=== PATIENT | female | born 1935 | race Caucasian/White ===

== ENCOUNTER → 2016-02-18 | Outpatient (CLI) | payer MEDICARE, OTHER | LOC: GMAJ 17:04 | PROVIDERS: ATTEND Family Medicine | DX: E03.9 Hypothyroidism, unspecified (principal) ==

== ENCOUNTER 2016-02-22 07:26 | Emergency (ER) | payer MEDICARE, OTHER ==
[2016-02-22 07:38] VITALS: TEMP 98.1
--- NOTE | 2016-02-22 07:39 | ED.PDOC ---
History of Present Illness - General Chief Complaint: GI Problem Stated Complaint: vomiting,diarrhea Time Seen by Provider: 02/22/16 07:30 Information Source: patient, RN notes reviewed, EMS Exam Limitations: no limitations - History of Present Illness Initial Comments: Patient reports vomiting for 3 days with diarrhea that started last night. She has been feeling weak and reports she can't keep anything on her stomach. She has generalized abdominal pain that comes with the vomiting. Abdominal Pain Onset Location: generalized abdomen Pain Radiation: no radiation Quality: mild, cramping Timing/Duration: days - 3 Improving Factors: nothing Worsening Factors: eating Associated Symptoms: diarrhea, fatigue, nausea/vomiting Review of Systems - Review of Systems Constitutional: States: malaise, weakness. Denies: chills, diaphoresis, fever EENTM: States: no symptoms reported Respiratory: States: no symptoms reported Cardiology: States: chest pain. Denies: edema, palpitations, syncope Gastrointestinal/Abdominal: States: see HPI, abdominal pain, diarrhea, nausea, vomiting. Denies: constipation Genitourinary: States: no symptoms reported Musculoskeletal: States: no symptoms reported Skin: States: no symptoms reported Neurological: States: weakness. Denies: headache Endocrine: States: no symptoms reported Hematologic/Lymphatic: States: no symptoms reported Past Medical History (General) - Patient Medical History Hx Seizures: No Hx Stroke: No Hx Dementia: No Hx Asthma: Yes Hx of COPD: Yes Hx Cardiac Disorders: Yes - CHF Hx Congestive Heart Failure: Yes Hx Pacemaker: Yes Hx Hypertension: Yes Hx Thyroid Disease: Yes Hx Diabetes: No Hx Gastroesophageal Reflux: Yes Hx Renal Disease: Yes Hx Cancer: Yes Hx of HIV: No Hx Hepatitis C: No Hx MRSA: No - Vaccination History Hx Tetanus, Diphtheria Vaccination: Yes Hx Influenza Vaccination: Yes Hx Pneumococcal Vaccination: No - Social History Hx Tobacco Use: No Hx Chewing Tobacco Use: No Hx Alcohol Use: No Hx Substance Use: No Hx Substance Use Treatment: No Hx Depression: Yes Hx Physical Abuse: No Hx Emotional Abuse: No Hx Suspected Abuse: No - Female History Patient : No Family Medical History - Family History Father Living Status: Age at (years of age): 70 Cause of : [place] Sister Living Status: Cause of : colon cancer Hx Family Cancer: Yes Mother Name: Dorys Age (years): 90 Living Status: Cause of : heart disease Hx Family Asthma: No Hx Family Congestive Heart Failure: No Hx Family Hypertension: No Hx Family Stroke: No Hx Cardiac Disease: Yes Hx Family Diabetes: No Hx Family Cancer: No Physical Exam - Physical Exam General Appearance: Alert, Comfortable, Frail, No apparent distress Neck: non-tender, full range of motion, supple, normal inspection Respiratory: chest non-tender, lungs clear, normal breath sounds, no respiratory distress, no accessory muscle use Cardiovascular/Chest: regular rate, rhythm, no edema, no gallop, no JVD, no murmur Gastrointestinal/Abdominal: normal bowel sounds, soft, other - Mild diffuse tenderness that is worse in her lower abdomen Extremity: normal range of motion, non-tender Neurologic: no motor/sensory deficits, alert, normal mood/affect, oriented x 3 Skin Exam: normal color, warm/dry Lymphatic: no adenopathy Progress - Progress Progress: 02/22/16 10:07 Patient reporting substernal chest pain. Aching in nature and radiating to her L shoulder. + SOB but no nausea or diaphoresis. 02/22/16 10:08 - Results/Orders Results/Orders: Laboratory Tests 02/22/16 07:58 WBC 19.5 H RBC 4.35 Hgb 13.3 Hct 41.1 MCV 94.5 MCH 30.6 MCHC 32.4 L RDW 15.4 H Plt Count 322 MPV 7.6 Absolute Neuts (auto) 17.50 H Absolute Lymphs (auto) 0.90 L Absolute Monos (auto) 1.10 H Absolute Eos (auto) 0.00 Absolute Basos (auto) 0.10 Neutrophils % 89.7 H Lymphocytes % 4.5 L Monocytes % 5.5 Eosinophils % 0.0 L Basophils % 0.3 Sodium 135 Potassium 3.7 Chloride 98 L Carbon Dioxide 24 Anion Gap 16.7 BUN 31 H Creatinine 1.22 BUN/Creatinine Ratio 25.4 H Random Glucose 134 H Serum Osmolality 278.6 Calcium 9.7 Total Bilirubin 1.5 H AST 38 ALT 12 Alkaline Phosphatase 74 Serum Total Protein 7.7 Albumin 4.4 Globulin 3.3 Albumin/Globulin Ratio 1.3 Patient is feeling better. Will give ice chips and see if she can keep them down. Patient tolerated ice chips without difficulty. Awaiting urine sample. Cardiac labs and D-Dimer are within normal limits UA shows Large Leukocytes, otherwise normal. Will send for culture. - EKG/XRAY/CT EKG: Sinus, no ST T wave changes, Unchanged from - 01/08/15 Comments: Demand pacemaker, occ PVC's Departure - Departure Clinical Impression: Gastroenteritis, UTI (urinary tract infection), Dehydration Time of Disposition: 12:20 Disposition: Discharge to Home or Self Care Condition: Good Departure Forms: ED Discharge - Pt. Copy, Patient Portal Self Enrollment Instructions: DI for Viral Gastroenteritis -- Adult, DI for Dehydration -- Adult, Urinary Tract Infection Diet: resume usual diet Activity: increase activity as tolerated Referrals: Andre Patel MD [Primary Care Provider] - 1-2 Days Prescriptions: Ondansetron [Zofran Odt] 4 mg PO Q4HR PRN #20 tab PRN Reason: Nausea/Vomiting Nitrofurantoin Monohydrate Mac [Macrobid] 100 mg PO BID #20 cap Home Medications: Ambulatory Orders Furosemide 40 mg PO DAILY 07/27/12 Levothyroxine Sodium [Synthroid] 0.05 mg PO DAILY@0700 07/27/12 Olanzapine [Zyprexa] 10 mg PO BEDTIME 07/27/12 Nitroglycerin [Nitroglycerin Transdermal] 0.2 mg TD DAILY 12/08/13 Atenolol [Tenormin] 50 mg PO BID 02/27/15 Metoclopramide HCl [Reglan] 5 mg PO AC 02/27/15 Cefdinir [Omnicef] 300 mg PO BID #8 cap 03/02/15 Potassium Chloride [K-Tab] 10 meq PO QAM #30 tab 03/02/15 Nitrofurantoin Monohydrate Mac [Macrobid] 100 mg PO BID #20 cap 02/22/16 Ondansetron [Zofran Odt] 4 mg PO Q4HR PRN #20 tab 02/22/16
[2016-02-22] MEDS ORDERED: ONDANSETRON INJ 4 MG/2 ML VIAL IV ONE ×2 (07:41→12:06)
[2016-02-22] MEDS ORDERED: SODIUM CHLORIDE 0.9% 1000ML 1,000 ML IVS ONE (07:41)
[2016-02-22] MEDS ORDERED: SODIUM CHLORIDE 0.9% 500ML 500 ML IVS ONE (09:49)
[2016-02-22] MEDS ORDERED: NITROFURANTOIN MONOHYDRATE MAC 100 MG CAP PO ONE (12:06)
[2016-02-22 12:36] VITALS: BP 119/44; O2SAT 100
== END 2016-02-22 12:36 | disposition home or self-care (01) ==
LOC: ER 07:26
DX: K52.9 Noninfective gastroenteritis and colitis, unspecified (principal); N39.0 Urinary tract infection, site not specified; E86.0 Dehydration; I11.0 Hypertensive heart disease with heart failure; I50.9 Heart failure, unspecified; J44.9 Chronic obstructive pulmonary disease, unspecified; E07.9 Disorder of thyroid, unspecified; K21.9 Gastro-esophageal reflux disease without esophagitis; N28.9 Disorder of kidney and ureter, unspecified; Z95.0 Presence of cardiac pacemaker; F32.9 Major depressive disorder, single episode, unspecified; Z82.49 Family history of ischemic heart disease and other diseases of the circulatory system; Z80.0 Family history of malignant neoplasm of digestive organs; Z79.899 Other long term (current) drug therapy
CPT/HCPCS: 36415; 80053; 81001; 82550; 82553; 84484; 85025; 85379; 87086; 93005; J2405; J7030; J7040

== ENCOUNTER → 2016-06-22 | Outpatient (CLI) | payer MEDICARE, OTHER | END | disposition home or self-care (01) | LOC: GMAJ 11:39 | PROVIDERS: ATTEND Family Medicine | DX: I50.9 Heart failure, unspecified (principal); E03.9 Hypothyroidism, unspecified ==

== ENCOUNTER 2016-10-06 14:57 | Emergency (ER) | payer MEDICARE, OTHER ==
[2016-10-06 15:26] VITALS: BP 168/81; TEMP 97.3; O2SAT 99
[2016-10-06] MEDS ORDERED: TETANUS,DIPHTHERIA,PERTUSSIS 1 EA SYG IM ONE (15:55)
--- NOTE | 2016-10-06 16:18 | RAD ---
EXAM DESCRIPTION: Fingers,Left CLINICAL HISTORY: 81 years, Female, TRAUMA COMPARISON: FINDINGS: The 2nd metacarpophalangeal joint shows ventral medial subluxation without definite fracture. There is a probable similar ventral medial subluxation at the 3rd metacarpal phalangeal joint. The 3rd digit however is suboptimally visualized on this study. The 1st metacarpal phalangeal joint shows narrowing, sclerosis and suggestion of slight ulnar subluxation, presumably chronic. Some mild degenerative change of the 1st carpometacarpal joint. IMPRESSION: Apparent ventral medial subluxation at the 2nd and 3rd metacarpal phalangeal joints without visualized fracture. Chronic arthritic type changes in the 1st digit also noted Electronically signed by: Fco Mata MD 10/06/2016 4:17 PM CDT
[2016-10-06] MEDS ORDERED: ACETAMINOPHEN 500 MG TAB PO ONE (16:58)
[2016-10-06] MEDS ORDERED: NEOMYCIN-BACITRACIN-POLYMYXIN 0.9 GM UD TOP ONE (17:15)
--- NOTE | 2016-10-06 17:19 | ED.PDOC ---
History of Present Illness - General Chief Complaint: Trauma Stated Complaint: finger injury Time Seen by Provider: 10/06/16 15:54 Source: patient Exam Limitations: no limitations - History of Present Illness Initial Comments: PT STATES THAT SHE SMASHED HER FINGER IN A CAR DOOR JUST INFORMATION LEAD. Severity: mild Improving Factors: immobilization Worsening Factors: movement Allergies/Adverse Reactions: Allergies Ciprofloxacin [From Cipro] Allergy (Unknown, Verified 10/06/16 15:27) Codeine Allergy (Unknown, Verified 10/06/16 15:27) Morphine Allergy (Unknown, Verified 10/06/16 15:27) Home Medications: Ambulatory Orders Furosemide 40 mg PO DAILY 07/27/12 Levothyroxine Sodium [Synthroid] 0.05 mg PO DAILY@0700 07/27/12 Olanzapine [Zyprexa] 10 mg PO BEDTIME 07/27/12 Nitroglycerin [Nitroglycerin Transdermal] 0.2 mg TD DAILY 12/08/13 Atenolol [Tenormin] 50 mg PO BID 02/27/15 Metoclopramide Tab [Reglan Tab] 5 mg PO AC 02/27/15 Cefdinir [Omnicef] 300 mg PO BID #8 cap 03/02/15 Potassium Chloride [K-Tab] 10 meq PO QAM #30 tab 03/02/15 Nitrofurantoin Monohydrate Mac [Macrobid] 100 mg PO BID #20 cap 02/22/16 Ondansetron [Zofran Odt] 4 mg PO Q4HR PRN #20 tab 02/22/16 Review of Systems - Review of Systems Constitutional: Denies: chills, fever EENTM: Denies: blurred vision, ear pain Musculoskeletal: Denies: back pain, joint pain Skin: Denies: change in color, lesions Past Medical History (General) - Patient Medical History Hx Seizures: No Hx Stroke: No Hx Dementia: No Hx Asthma: Yes Hx of COPD: Yes Hx Cardiac Disorders: Yes - CHF Hx Congestive Heart Failure: Yes Hx Pacemaker: Yes Hx Hypertension: Yes Hx Thyroid Disease: Yes Hx Diabetes: No Hx Gastroesophageal Reflux: Yes Hx Renal Disease: Yes Hx Cancer: Yes Hx of HIV: No Hx Hepatitis C: No Hx MRSA: No Surgical History: Hysterectomy - Vaccination History Hx Tetanus, Diphtheria Vaccination: No Hx Influenza Vaccination: Yes Hx Pneumococcal Vaccination: No - Social History Hx Tobacco Use: No Hx Chewing Tobacco Use: No Hx Alcohol Use: No Hx Substance Use: No Hx Substance Use Treatment: No Hx Depression: Yes Hx Physical Abuse: No Hx Emotional Abuse: No Hx Suspected Abuse: No - Activities of Daily Living Hospice Agency (if applicable):: None - Female History Patient is a Female of Child Bearing Age (10 -59 yrs old): No Patient : No Family Medical History - Family History Father Living Status: Age at (years of age): 70 Cause of : [place] Sister Living Status: Cause of : colon cancer Hx Family Cancer: Yes Mother Name: Dorys Age (years): 90 Living Status: Cause of : heart disease Hx Family Asthma: No Hx Family Congestive Heart Failure: No Hx Family Hypertension: No Hx Family Stroke: No Hx Cardiac Disease: Yes Hx Family Diabetes: No Hx Family Cancer: No Physical Exam - Physical Exam General Appearance: Alert, Comfortable, No apparent distress Ears, Nose, Throat: hearing grossly normal Respiratory: no respiratory distress Extremity: other - AVULSION TYPE LACERATION TO THE LEFT 2ND DIGIT WITH HEMATOMA BENEATH THE PROXIMAL NAILBED. DISTAL NAILBED INTACT. FLEXOR AND EXTENSOR TENDON FUNCTION INTACT. PT HAS JOINT SUBLUXATIONS OF CHRONIC ARTHRITIS. Neurologic: alert, normal mood/affect Skin Exam: normal color, warm/dry Progress - Progress Progress: 10/06/16 17:19 FINGER CLEANED AND DRESSED BY NURSING, TETANUS GIVEN. - EKG/XRAY/CT XRAY: hand - NO ACUTE FX PER RAD Departure - Departure Clinical Impression: Finger laceration, Nail bed injury Time of Disposition: 17:21 Disposition: Discharge to Home or Self Care Condition: Good Departure Forms: ED Discharge - Pt. Copy, Patient Portal Self Enrollment Referrals: Andre Patel MD [Primary Care Provider] - 1 Week Home Medications: Ambulatory Orders Furosemide 40 mg PO DAILY 07/27/12 Levothyroxine Sodium [Synthroid] 0.05 mg PO DAILY@0700 07/27/12 Olanzapine [Zyprexa] 10 mg PO BEDTIME 07/27/12 Nitroglycerin [Nitroglycerin Transdermal] 0.2 mg TD DAILY 12/08/13 Atenolol [Tenormin] 50 mg PO BID 02/27/15 Metoclopramide Tab [Reglan Tab] 5 mg PO AC 02/27/15 Cefdinir [Omnicef] 300 mg PO BID #8 cap 03/02/15 Potassium Chloride [K-Tab] 10 meq PO QAM #30 tab 03/02/15 Nitrofurantoin Monohydrate Mac [Macrobid] 100 mg PO BID #20 cap 02/22/16 Ondansetron [Zofran Odt] 4 mg PO Q4HR PRN #20 tab 02/22/16
== END 2016-10-06 17:39 | disposition home or self-care (01) ==
LOC: ER 14:57
DX: S61.311A Laceration without foreign body of left index finger with damage to nail, initial encounter (principal); I11.0 Hypertensive heart disease with heart failure; I50.9 Heart failure, unspecified; J44.9 Chronic obstructive pulmonary disease, unspecified; E07.9 Disorder of thyroid, unspecified; K21.9 Gastro-esophageal reflux disease without esophagitis; Z88.6 Allergy status to analgesic agent; Z79.899 Other long term (current) drug therapy; Z88.3 Allergy status to other anti-infective agents; Z95.0 Presence of cardiac pacemaker; Z23 Encounter for immunization; W23.0XXA Caught, crushed, jammed, or pinched between moving objects, initial encounter

== ENCOUNTER → 2016-10-13 | Outpatient (CLI) | payer MEDICARE, OTHER | LOC: GMAJ 14:47 | PROVIDERS: ATTEND Family Medicine | DX: E03.9 Hypothyroidism, unspecified (principal) ==

== ENCOUNTER → 2017-04-13 | Outpatient (CLI) | payer MEDICARE, OTHER | LOC: GMAJ 10:49 | PROVIDERS: ATTEND Family Medicine | DX: E03.9 Hypothyroidism, unspecified (principal) ==

== ENCOUNTER → 2017-06-06 | Outpatient (CLI) | payer MEDICARE, OTHER | LOC: GMALS 19:29 | PROVIDERS: ATTEND Nurse Practitioner Acute Care | DX: N39.0 Urinary tract infection, site not specified (principal) ==

== ENCOUNTER → 2017-10-18 | Outpatient (CLI) | payer MEDICARE, OTHER | LOC: NC 10:08 | PROVIDERS: ATTEND Family Medicine | DX: J44.9 Chronic obstructive pulmonary disease, unspecified (principal); I11.0 Hypertensive heart disease with heart failure; I50.42 Chronic combined systolic (congestive) and diastolic (congestive) heart failure; R13.10 Dysphagia, unspecified ==

== ENCOUNTER 2017-11-29 19:14 | Emergency (ER) | payer MEDICARE, OTHER ==
[2017-11-29] MEDS ORDERED: SODIUM CHLORIDE 0.9% (FLUSH) 10 ML SYG IV PRN (19:28)
[2017-11-29] MEDS ORDERED: ASPIRIN TABLET 325 MG TAB PO ONE (19:29)
[2017-11-29 19:40] VITALS: TEMP 97.8
[2017-11-29] MEDS ORDERED: ASPIRIN (CHEWABLE) 81 MG TAB PO ONE (19:42)
--- NOTE | 2017-11-29 19:48 | ED.PDOC ---
History of Present Illness - General Chief Complaint: Chest Pain/KS Stated Complaint: chest pain Time Seen by Provider: 11/29/17 19:27 Source: patient, family Exam Limitations: no limitations - History of Present Illness Initial Comments: L-SIDED CP. STARTED TODAY, OFF AND ON. TOOK NTG X 3, NO RELIEF. PAIN 10. "PRESSURE". SAW CARDS 1 1/2 WKS AGO, DR HERRING. NO SX OR CONCERNS AT THAT TIME. NOTE: PT STATES SHE IS ALLERGIC TO CODEINE PO BUT NOT IV MORPHINE. PER FURTHER QUESTIONING, PT STATES HER CHEST PAIN HAS BEEN PRESENT ALL WEEK BUT SHE DIDN'T WANT HER DAUGHTER TO KNOW IT WAS PRESENT PRIOR TO TODAY. Allergies/Adverse Reactions: Allergies Ciprofloxacin [From Cipro] Allergy (Unknown, Verified 10/06/16 15:27) Codeine Allergy (Unknown, Verified 10/06/16 15:27) Home Medications: Ambulatory Orders Furosemide 40 mg PO DAILY 07/27/12 Levothyroxine Sodium [Synthroid] 0.05 mg PO DAILY@0700 07/27/12 Olanzapine [Zyprexa] 10 mg PO BEDTIME 07/27/12 Nitroglycerin [Nitroglycerin Transdermal] 0.2 mg TD DAILY 12/08/13 Atenolol [Tenormin] 50 mg PO BID 02/27/15 Metoclopramide Tab [Reglan Tab] 5 mg PO AC 02/27/15 Cefdinir [Omnicef] 300 mg PO BID #8 cap 03/02/15 Potassium Chloride [K-Tab] 10 meq PO QAM #30 tab 03/02/15 Nitrofurantoin Monohydrate Mac [Macrobid] 100 mg PO BID #20 cap 02/22/16 Ondansetron [Zofran Odt] 4 mg PO Q4HR PRN #20 tab 02/22/16 Review of Systems - Review of Systems Constitutional: Denies: chills, fever, malaise EENTM: States: no symptoms reported Respiratory: Denies: cough, short of breath Cardiology: States: chest pain. Denies: palpitations, syncope Gastrointestinal/Abdominal: States: no symptoms reported Genitourinary: States: no symptoms reported Musculoskeletal: States: no symptoms reported Skin: States: no symptoms reported Neurological: States: no symptoms reported Endocrine: States: no symptoms reported Hematologic/Lymphatic: States: no symptoms reported All other Systems: Reviewed and Negative Past Medical History (General) - Patient Medical History Hx Seizures: No Hx Stroke: No Hx Dementia: No Hx Asthma: Yes Hx of COPD: Yes Hx Cardiac Disorders: Yes - CHF Hx Congestive Heart Failure: Yes Hx Pacemaker: Yes Hx Hypertension: Yes Hx Thyroid Disease: Yes Hx Diabetes: No Hx Gastroesophageal Reflux: Yes Hx Renal Disease: Yes Hx Cancer: Yes Hx of HIV: No Hx Hepatitis C: No Hx MRSA: No Surgical History: pacemaker, Hysterectomy, other - Vaccination History Hx Tetanus, Diphtheria Vaccination: No Hx Influenza Vaccination: Yes Hx Pneumococcal Vaccination: No - Social History Hx Tobacco Use: No Hx Chewing Tobacco Use: No Hx Alcohol Use: No Hx Substance Use: No Hx Substance Use Treatment: No Hx Depression: Yes Hx Physical Abuse: No Hx Emotional Abuse: No Hx Suspected Abuse: No - Female History Patient : No - Triage Comment ED Triage Comment: Pt reports she started having sharp constant pressure about 1430 today. She has been having this pain for about two weeks now. 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 Pt does have a pacemaker. and had it replaced last year. Pt also stated she was told she has a "leaky heart". Family Medical History - Family History Father Living Status: Age at (years of age): 70 Cause of : [place] Sister Living Status: Cause of : colon cancer Hx Family Cancer: Yes Mother Name: Dorys Age (years): 90 Living Status: Cause of : heart disease Hx Family Asthma: No Hx Family Congestive Heart Failure: No Hx Family Hypertension: No Hx Family Stroke: No Hx Cardiac Disease: Yes Hx Family Diabetes: No Hx Family Cancer: No Physical Exam - Physical Exam General Appearance: Alert, Well Developed Eyes, Ears, Nose, Throat Exam: PERRL/EOMI, normal ENT inspection Neck: non-tender, full range of motion, supple, other - NO JVD. NO CAROTID BRUIT. Respiratory: chest non-tender, lungs clear, normal breath sounds, no respiratory distress, no accessory muscle use Cardiovascular/Chest: regular rate, rhythm, no edema, no JVD, no murmur Peripheral Pulses: radial,right: 2+, radial,left: 2+ Gastrointestinal/Abdominal: normal bowel sounds, non tender, soft Extremity: normal range of motion, non-tender, no pedal edema Neurologic: no motor/sensory deficits, alert, normal mood/affect Skin Exam: normal color, warm/dry Lymphatic: no adenopathy Progress - Progress Progress: 11/29/17 21:07 NOTE: PT IS A DIFFICULT STICK AND THE BLOOD SENT TO LAB WAS NOT ENOUGH FOR CARDIAC ENZYMES. MAKING NUMEROUS NEW ATTEMPTS. 11/29/17 22:09 EKG X 2 NEG AT 19:16 AND 22:02. 11/29/17 23:07 I WAS GOING TO ATTEMPT IV ACCESS USING FEMORAL STICK AND THEN WITH U/S-GUIDED IJ BUT PT REFUSED BOTH. SHE REQUESTED I NOT MAKE EITHER ATTEMPT AND STATED SHE WOULD RATHER BE TRANSFERRED TO [facility]. THIS IS REASONABLE, GIVEN HER VS ARE STABLE AND 2 EKG'S ARE NEGATIVE FOR ACUTE CORONARY SYNDROME. I SPOKE WITH DR. ARREGUIN, [facility], AND HE ACCEPTED TRANSFER ER TO ER VIA EMS. (NOTE: PT'S FELT STRIP FINISHER IS DR HERR[facility] IN [facility].) THANK YOU, DR. ARREGUIN AND [facility], FOR ACCEPTING FURTHER CARE OF OUR MUTUAL PATIENT. Departure - Departure Clinical Impression: Chest pain Qualifiers: Chest pain type: precordial pain Qualified Code(s): R07.2 - Precordial pain Disposition: Transfer to Hospital Condition: Fair Departure Forms: ED Discharge - Pt. Copy, Patient Portal Self Enrollment Instructions: DI for Chest Pain Referrals: Andre Patel MD [Primary Care Provider] - 1-2 Weeks Home Medications: Ambulatory Orders Furosemide 40 mg PO DAILY 07/27/12 Levothyroxine Sodium [Synthroid] 0.05 mg PO DAILY@0700 07/27/12 Olanzapine [Zyprexa] 10 mg PO BEDTIME 07/27/12 Nitroglycerin [Nitroglycerin Transdermal] 0.2 mg TD DAILY 12/08/13 Atenolol [Tenormin] 50 mg PO BID 02/27/15 Metoclopramide Tab [Reglan Tab] 5 mg PO AC 02/27/15 Cefdinir [Omnicef] 300 mg PO BID #8 cap 03/02/15 Potassium Chloride [K-Tab] 10 meq PO QAM #30 tab 03/02/15 Nitrofurantoin Monohydrate Mac [Macrobid] 100 mg PO BID #20 cap 02/22/16 Ondansetron [Zofran Odt] 4 mg PO Q4HR PRN #20 tab 02/22/16 Transfer to Outside Facility - Transfer Information Accepting Provider:: DR. ARREGUIN Accepting Facility: [facility] Reason for Transfer: specialized care not available
[2017-11-29] MEDS: MORPHINE SULFATE INJ 10 MG/ML VIAL IV ONE ×2 (19:54→23:24)
--- NOTE | 2017-11-29 20:22 | RAD ---
EXAM DESCRIPTION: AP view of the chest CLINICAL HISTORY:82 years Female, chest pain, sharp pressure Comparison: None FINDINGS: No focal lung consolidation. The lungs are hyperinflated. No pleural effusion. No pneumothorax. Cardiac and mediastinal silhouette is unremarkable. Pacemaker from a left subclavian approach. No acute osseous abnormality. Soft tissues are unremarkable. IMPRESSION: No acute findings. No focal lung consolidation. Electronically signed by: Chadwick Carolina DO 11/29/2017 8:20 PM CDT
[2017-11-29] MEDS ORDERED: MORPHINE SULFATE INJ 10 MG/ML VIAL IM ONE (21:50)
[2017-11-29 23:14] VITALS: O2SAT 100
[2017-11-29 23:43] VITALS: BP 115/73
== END 2017-11-29 23:35 | disposition short-term general hospital (02) ==
LOC: ER 19:14
DX: R07.2 Precordial pain (principal); F32.9 Major depressive disorder, single episode, unspecified; J44.9 Chronic obstructive pulmonary disease, unspecified; K21.9 Gastro-esophageal reflux disease without esophagitis; E07.9 Disorder of thyroid, unspecified; I13.0 Hypertensive heart and chronic kidney disease with heart failure and stage 1 through stage 4 chronic kidney disease, or unspecified chronic kidney disease; N18.9 Chronic kidney disease, unspecified; I50.9 Heart failure, unspecified; Z95.0 Presence of cardiac pacemaker; Z79.899 Other long term (current) drug therapy; Z88.1 Allergy status to other antibiotic agents; Z88.5 Allergy status to narcotic agent; Z85.9 Personal history of malignant neoplasm, unspecified
CPT/HCPCS: 71045; 93005; J2270

== ENCOUNTER → 2018-04-17 | Outpatient (CLI) | payer MEDICARE, OTHER | LOC: BFHH 14:11 | PROVIDERS: ATTEND Family Medicine | DX: R30.0 Dysuria (principal); R35.0 Frequency of micturition ==